=== PATIENT | male | born 1955 | race Caucasian/White ===

== ENCOUNTER 2021-06-10 13:35 | Inpatient (IN) | payer MEDICAID, MEDICARE, OTHER ==
[~2021-06-10] VITALS: Ht 185.4 cm; Wt 83.5 kg
[2021-06-10] MEDS ORDERED: SODIUM CHLORIDE 0.9% 1,000 ML IV ONE ×2 (14:00→18:30)
[2021-06-10] MEDS ORDERED: PIPERACILLIN-TAZOB 3.375GM 100 ML IV ONE (14:00)
[2021-06-10 14:21] LABS: Basophils # (auto) 0.1 10 ^3/uL (0-0.2); Eosinophils # (auto) 0.1 10 ^3/uL (0-0.8); Hemoglobin 13.6 g/dL (13.5-17.5); Lymphocytes # (auto) 0.9 10 ^3/uL (0.4-5.4); Monocytes # (auto) 0.9 10 ^3/uL (0-1.3); Red Cell Distribution Width 13.3 % (11.8-14.3)
[2021-06-10 14:22] LABS: Basophils % (auto) 0.3 % (0.0-2.0); Eosinophils % (auto) 0.3 % (0.0-7.0); Hematocrit 39.4 % (41.0-53.0); Lymphocytes % (auto) 4.5 % (10.0-50.0); Mean Corpuscular Hemoglobin 31.9 pg (28.0-32.0); Mean Corpuscular Hgb Conc. 34.6 g/dL (32.0-36.0); Mean Corpuscular Volume 92.3 fL (80.0-100.0); Monocytes % (auto) 4.5 % (0.0-12.0); Neutrophils # (auto) 17.6 10 ^3/uL (1.6-8.6); Neutrophils % (auto) 90.4 % (37.0-80.0); Red Blood Cells 4.27 10^6/uL (4.5-5.90); White Blood Cell 19.5 10^3/uL (4.4-10.8)
[2021-06-10 14:35] LABS: INR 1.16 (0.9-1.15); Partial Thromboplastin Time 33.3 sec (23.6-33.0)
[2021-06-10 14:40] LABS: Albumin 2.5 g/dL (3.4-5.0); Anion Gap 7 (5-15); BUN/Creatinine Ratio 13.4; Blood Urea Nitrogen 9 mg/dL (7-18); Calcium 8.7 mg/dL (8.5-10.1); Carbon Dioxide 28 mmol/L (21-32); Chloride 94 mmol/L (98-107); GFR African American 153 mL/min; GFR Non-African American 126 mL/min; Glucose 170 mg/dL (74-106); Potassium 3.2 mmol/L (3.5-5.1); Sodium 129 mmol/L (136-145)
[2021-06-10 14:47] LABS: Alanine Aminotransferase 37 U/L (16-61); Alkaline Phosphatase 153 U/L (45-117); Aspartate Aminotransferase 22 U/L (15-37); Total Protein 7.1 g/dL (6.4-8.2)
[2021-06-10] MEDS ORDERED: cloNIDine HCL 0.1 MG TAB PO ONE (15:00)
[2021-06-10] MEDS ORDERED: MORPHINE SULFATE INJECTION 2 MG/ML SYRG IV PRN ×3 (17:45→18:30)
[2021-06-10] MEDS ORDERED: NITROGLYCERIN 0.4 MG SL TAB SL PRN ×2 (17:45→18:30)
[2021-06-10] MEDS ORDERED: HYDROcodone-ACET 5/325MG TAB PO PRN (18:30)
[2021-06-10] MEDS ORDERED: ONDANSETRON HCL 4 MG/2 ML VIAL IV PRN (18:30)
[2021-06-10] MEDS ORDERED: BENAZEPRIL HCL 10 MG TAB PO ONE (18:30)
[2021-06-10] MEDS ORDERED: ALUM & MAG HYDROX-SIMETH LIQ(MAALOX) 30 ML PO PRN (18:30)
[2021-06-10] MEDS ORDERED: VANCOMYCIN PER PHARMACY 0 MG IV SCH (18:30)
[2021-06-10] MEDS ORDERED: LORazepam 0.5 MG TAB PO PRN (18:30)
[2021-06-10] MEDS ORDERED: DEXTROSE (50%) 50ML SYRG IV PRN (18:30)
[2021-06-10] MEDS ORDERED: NIFEdipine ER 30 MG TAB PO ONE (18:30)
[2021-06-10] MEDS ORDERED: SODIUM CHLORIDE 0.9% 1,000 ML IV SCH (18:30)
[2021-06-10] MEDS ORDERED: hydrALAZINE HCL 20 MG/ML VL IV PRN (18:30)
[2021-06-10] MEDS ORDERED: DOCUSATE SOD 100 MG CAP PO PRN (18:30)
[2021-06-10] MEDS ORDERED: ACETAMINOPHEN 325 MG TAB PO PRN (18:30)
[2021-06-10] MEDS ORDERED: PIPERACILLIN-TAZO 4.5GM 100 ML IV ONE (18:45)
[2021-06-10 19:14] LABS: Cholesterol 127 mg/dL (< 200); HDL Cholesterol 40 mg/dL (40-59); LDL Cholesterol 72 mg/dL (< 100); Triglycerides 101 mg/dL (< 150)
[2021-06-10] MEDS ORDERED: PENTOXIFYLLINE 400 MG ER TAB PO ONE (20:00)
[2021-06-10] MEDS: POTASSIUM CHL 20MEQ/100ML 100 ML IV SCH ×2 (21:29→22:17)
[2021-06-10] MEDS ORDERED: ATORVASTATIN 20 MG TAB PO SCH (22:00)
[2021-06-10] MEDS ORDERED: InsuLIN REG 1unit/0.01ml Soln (100units/ml) SC SCH (22:00)
[2021-06-10] MEDS: ACCU-CHEK COMFORT CURVE STRIP VI SCH (22:00)
[2021-06-11] MEDS: VANCOMYCIN 1GM/250ML 250 ML IV SCH ×4 (01:07→09:05)
[2021-06-11 01:35] VITALS: BP 143/64
[2021-06-11] MEDS: PIPERACILLIN-TAZOB 3.375GM 100 ML IV SCH ×2 (02:32→06:19)
[2021-06-11] MEDS ORDERED: PENTOXIFYLLINE 400 MG ER TAB PO SCH (04:00)
[2021-06-11 05:00] VITALS: BP 151/64
[2021-06-11] MEDS: ACCU-CHEK COMFORT CURVE STRIP VI SCH (06:19)
[2021-06-11] MEDS ORDERED: InsuLIN REG 1unit/0.01ml Soln (100units/ml) SC SCH (07:00)
[2021-06-11 07:58] LABS: Basophils # (auto) 0.1 10 ^3/uL (0-0.2); Basophils % (auto) 0.3 % (0.0-2.0); Eosinophils # (auto) 0.1 10 ^3/uL (0-0.8); Eosinophils % (auto) 0.5 % (0.0-7.0); Lymphocytes % (auto) 4.8 % (10.0-50.0); Mean Corpuscular Hemoglobin 32.5 pg (28.0-32.0); Mean Corpuscular Hgb Conc. 35.3 g/dL (32.0-36.0); Mean Corpuscular Volume 92.1 fL (80.0-100.0); Monocytes % (auto) 4.7 % (0.0-12.0); Neutrophils # (auto) 18.5 10 ^3/uL (1.6-8.6); Neutrophils % (auto) 89.7 % (37.0-80.0); Red Cell Distribution Width 13.5 % (11.8-14.3); White Blood Cell 20.6 10^3/uL (4.4-10.8)
[2021-06-11 08:00] VITALS: BP 156/74
[2021-06-11 08:11] LABS: Albumin 2.1 g/dL (3.4-5.0); Anion Gap 8 (5-15); Blood Urea Nitrogen 14 mg/dL (7-18); Calcium 7.9 mg/dL (8.5-10.1); Carbon Dioxide 24 mmol/L (21-32); Chloride 99 mmol/L (98-107); Glucose 153 mg/dL (74-106); Potassium 3.3 mmol/L (3.5-5.1); Sodium 131 mmol/L (136-145)
[2021-06-11 08:17] LABS: Alanine Aminotransferase 31 U/L (16-61); Alkaline Phosphatase 128 U/L (45-117); Aspartate Aminotransferase 22 U/L (15-37); BUN/Creatinine Ratio 20.6; GFR African American 150 mL/min; GFR Non-African American 124 mL/min; Phosphorus 3.1 mg/dL (2.5-4.90); Total Protein 6.2 g/dL (6.4-8.2)
[2021-06-11 09:00] VITALS: BP 156/74
[2021-06-11] MEDS ORDERED: NIFEdipine ER 30 MG TAB PO SCH (10:00)
[2021-06-11] MEDS ORDERED: ENOXAPARIN SOD 40 MG/0.4 ML SYRINGE SC SCH (10:00)
[2021-06-11] MEDS ORDERED: ASPirin 81 mg TAB PO SCH (10:00)
[2021-06-11] MEDS ORDERED: BENAZEPRIL HCL 10 MG TAB PO SCH (10:00)
== END 2021-06-11 09:21 | disposition left against medical advice (07) | DRG 638 ==
LOC: ER 13:35 → EDBD 13:35 → EDUNIT# 13:35 → TELE 18:25 → TELE-WESTW 23:34
PROVIDERS: ADMIT Hospitalist; ATTEND Hospitalist
DX: E11.69 Type 2 diabetes mellitus with other specified complication (principal); E44.1 Mild protein-calorie malnutrition; L03.115 Cellulitis of right lower limb; M86.171 Other acute osteomyelitis, right ankle and foot; E11.621 Type 2 diabetes mellitus with foot ulcer; M72.2 Plantar fascial fibromatosis; I16.0 Hypertensive urgency; L97.519 Non-pressure chronic ulcer of other part of right foot with unspecified severity; J44.9 Chronic obstructive pulmonary disease, unspecified; E11.40 Type 2 diabetes mellitus with diabetic neuropathy, unspecified; E78.5 Hyperlipidemia, unspecified; D63.8 Anemia in other chronic diseases classified elsewhere; E11.51 Type 2 diabetes mellitus with diabetic peripheral angiopathy without gangrene; E66.01 Morbid (severe) obesity due to excess calories; Z20.822 Contact with and (suspected) exposure to COVID-19; I11.0 Hypertensive heart disease with heart failure; I50.9 Heart failure, unspecified; Z53.29 Procedure and treatment not carried out because of patient's decision for other reasons; M10.9 Gout, unspecified; Z89.432 Acquired absence of left foot; Z83.3 Family history of diabetes mellitus
CPT/HCPCS: 36415; 71045; 73700; 80053; 80061; 82962; 83036; 83605; 83735; 83880; 83970; 84100; 84443; 84484; 85025; 85610; 85730; 87040; 87426; 93970; 96361; 96365; G0378; J1815; J2543; J3480

== ENCOUNTER → 2021-06-15 | Emergency (ER) | payer OTHER ==
[~2021-06-15] VITALS: Ht 182.9 cm; Wt 87.1 kg
[~2021-06-15] MED LIST: SODIUM CHLORIDE 0.9% 1,000 ML IV ONE; SODIUM CHLORIDE 0.9% 500 ML IV ONE; VANCOMYCIN 1GM/250ML 250 ML IV ONE
[2021-06-15 12:03] VITALS: BP 144/58
[2021-06-15 15:14] LABS: INR 1.32 (0.9-1.15); Partial Thromboplastin Time 33.6 sec (23.6-33.0)
[2021-06-15 15:29] LABS: Albumin 2.2 g/dL (3.4-5.0); Calcium 8.8 mg/dL (8.5-10.1); Potassium 3.4 mmol/L (3.5-5.1)
[2021-06-15 15:33] LABS: BUN/Creatinine Ratio 20.8; Bilirubin, Total 1.2 mg/dL (0.2-1.0); Total Protein 7.5 g/dL (6.4-8.2)
[2021-06-15 15:36] LABS: Hemoglobin 12.3 g/dL (13.5-17.5); Mean Corpuscular Volume 91.5 fL (80.0-100.0)
[2021-06-15 15:37] LABS: Hematocrit 35.4 % (41.0-53.0); Mean Corpuscular Hemoglobin 31.9 pg (28.0-32.0); Mean Corpuscular Hgb Conc. 34.9 g/dL (32.0-36.0); Red Blood Cells 3.86 10^6/uL (4.5-5.90); Red Cell Distribution Width 13.4 % (11.8-14.3); White Blood Cell 26.3 10^3/uL (4.4-10.8)
[2021-06-15 15:44] LABS: Band Neutrophils % (manual) 0; Basophils % (manual) 0 (0.0-2.0); Blast Cells 0; Eosinophils % (manual) 0 (0-7); Metamyelocytes % 0; Myelocytes % 0; Promyelocytes % 0; Reactive Lymphocytes 0
[2021-06-15 16:16] LABS: Lymphocytes % (manual) 4 (10.0-50.0); Monocytes % (manual) 2 (0-12)
== END | disposition home or self-care (01) ==
LOC: ER 11:43
DX: L03.115 Cellulitis of right lower limb (principal); E11.621 Type 2 diabetes mellitus with foot ulcer; M86.9 Osteomyelitis, unspecified; E11.65 Type 2 diabetes mellitus with hyperglycemia; E87.6 Hypokalemia; E43 Unspecified severe protein-calorie malnutrition; I11.0 Hypertensive heart disease with heart failure; I50.9 Heart failure, unspecified; J44.9 Chronic obstructive pulmonary disease, unspecified; M10.9 Gout, unspecified; E78.5 Hyperlipidemia, unspecified; Z68.26 Body mass index [BMI] 26.0-26.9, adult
CPT/HCPCS: 36415; 71046; 73700; 80053; 83735; 84484; 85007; 85027; 85610; 85730; 93005

== ENCOUNTER 2021-06-16 10:38 | Inpatient (IN) | payer OTHER ==
[~2021-06-16] VITALS: Ht 180.3 cm; Wt 100.8 kg
[2021-06-16] MEDS ORDERED: CLINDAMYCIN 600MG IV 50 ML IV ONE (11:15)
[2021-06-16 11:37] LABS: Hematocrit 36.8 % (41.0-53.0); Hemoglobin 12.6 g/dL (13.5-17.5); Mean Corpuscular Hemoglobin 31.8 pg (28.0-32.0); Mean Corpuscular Hgb Conc. 34.2 g/dL (32.0-36.0); Red Blood Cells 3.95 10^6/uL (4.5-5.90); Red Cell Distribution Width 13.4 % (11.8-14.3)
[2021-06-16 11:41] LABS: Albumin 2.2 g/dL (3.4-5.0); Calcium 8.8 mg/dL (8.5-10.1); Potassium 3.1 mmol/L (3.5-5.1)
[2021-06-16 11:49] LABS: Bilirubin, Total 1.2 mg/dL (0.2-1.0); Total Protein 7.7 g/dL (6.4-8.2)
[2021-06-16 11:51] LABS: Basophils % (manual) 0 (0.0-2.0); Blast Cells 0; Eosinophils % (manual) 0 (0-7); Metamyelocytes % 0; Myelocytes % 0; Promyelocytes % 0; Reactive Lymphocytes 0; White Blood Cell 30.5 10^3/uL (4.4-10.8)
[2021-06-16] MEDS ORDERED: SODIUM CHLORIDE 0.9% 1,000 ML IV SCH (12:45)
[2021-06-16] MEDS ORDERED: MORPHINE SULFATE INJECTION 2 MG/ML SYRG IV PRN (12:45)
[2021-06-16] MEDS ORDERED: ONDANSETRON HCL 4 MG/2 ML VIAL IV PRN (12:45)
[2021-06-16] MEDS ORDERED: ACETAMINOPHEN 325 MG TAB PO PRN (12:45)
[2021-06-16] MEDS ORDERED: NITROGLYCERIN 0.4 MG SL TAB SL PRN (12:45)
[2021-06-16] MEDS ORDERED: POTASSIUM EFFERVESENT TAB 25 MEQ PO ONE (13:00)
[2021-06-16] MEDS ORDERED: POTASSIUM CHL 20MEQ/100ML 100 ML IV SCH (13:00)
[2021-06-16] MEDS: SODIUM CHLORIDE 0.9% 1,000 ML IV SCH ×2 (13:41→22:05)
[2021-06-16] MEDS ORDERED: CLINDAMYCIN 600MG IV 50 ML IV SCH ×2 (14:00→22:00)
[2021-06-16 14:49] LABS: Band Neutrophils % (manual) 1; Lymphocytes % (manual) 5 (10.0-50.0); Monocytes % (manual) 7 (0-12)
[2021-06-16] MEDS ORDERED: VANCOMYCIN PER PHARMACY 0 MG IV STA (17:46)
[2021-06-16] MEDS ORDERED: VANCOMYCIN PER PHARMACY 0 MG IV SCH (18:30)
[2021-06-16] MEDS ORDERED: VANCOMYCIN 1GM/250ML 250 ML IV ONE (18:30)
[2021-06-16] MEDS: AMPICILLIN & SULBACTAM SODIUM 3 GM in SODIUM CHL 0.9% 100 ML IV SCH (19:07)
[2021-06-17] MEDS: AMPICILLIN & SULBACTAM SODIUM 3 GM in SODIUM CHL 0.9% 100 ML IV SCH ×4 (00:05→13:39)
[2021-06-17 00:24] VITALS: BP 131/61
[2021-06-17] MEDS: POTASSIUM CHL 20MEQ/100ML 100 ML IV SCH ×2 (01:16→03:38)
[2021-06-17] MEDS ORDERED: INFLUENZA QUAD 2021-2022 0.5 ML SYRG IM ONE (02:15)
[2021-06-17] MEDS ORDERED: PNEUMOCOCCAL VACC POLYS 25 MCG/0.5 ML VIAL IM ONE (02:15)
[2021-06-17 05:00] VITALS: BP 142/62
[2021-06-17 05:17] LABS: Basophils # (auto) 0.1 10 ^3/uL (0-0.2); Eosinophils # (auto) 0.1 10 ^3/uL (0-0.8); Lymphocytes # (auto) 0.8 10 ^3/uL (0.4-5.4); Monocytes # (auto) 1.2 10 ^3/uL (0-1.3); Neutrophils # (auto) 19.1 10 ^3/uL (1.6-8.6); White Blood Cell 21.3 10^3/uL (4.4-10.8)
[2021-06-17 05:19] LABS: Basophils % (auto) 0.6 % (0.0-2.0); Eosinophils % (auto) 0.4 % (0.0-7.0); Hematocrit 35.1 % (41.0-53.0); Lymphocytes % (auto) 3.9 % (10.0-50.0); Mean Corpuscular Hemoglobin 31.4 pg (28.0-32.0); Mean Corpuscular Hgb Conc. 34.1 g/dL (32.0-36.0); Mean Corpuscular Volume 91.9 fL (80.0-100.0); Monocytes % (auto) 5.8 % (0.0-12.0); Neutrophils % (auto) 89.3 % (37.0-80.0); Nucleated Red Blood Cells % 0.1 %; Red Blood Cells 3.82 10^6/uL (4.5-5.90); Red Cell Distribution Width 13.3 % (11.8-14.3)
[2021-06-17] MEDS: HYDROcodone-ACET 5/325MG TAB PO PRN ×2 (05:19→16:04)
[2021-06-17] MEDS: SODIUM CHLORIDE 0.9% 1,000 ML IV SCH ×2 (05:29→17:35)
[2021-06-17 05:41] LABS: Albumin 1.8 g/dL (3.4-5.0); Calcium 8.2 mg/dL (8.5-10.1); Potassium 3.6 mmol/L (3.5-5.1)
[2021-06-17 05:46] LABS: BUN/Creatinine Ratio 37.3; Total Protein 6.7 g/dL (6.4-8.2)
[2021-06-17] MEDS: VANCOMYCIN 1GM/250ML 250 ML IV SCH ×2 (06:00→17:35)
[2021-06-17 09:00] VITALS: BP 128/62
[2021-06-17] MEDS: ENOXAPARIN SOD 40 MG/0.4 ML SYRINGE SC SCH (10:00)
[2021-06-17 10:19] LABS: INR 1.41 (0.9-1.15); Partial Thromboplastin Time 35.1 sec (23.6-33.0)
[2021-06-17] MEDS ORDERED: ceFAZolin 1GM VL ONE (11:51)
[2021-06-17] MEDS ORDERED: fentaNYL CITRATE 100 MCG/2 ML VL ONE (12:09)
[2021-06-17] MEDS ORDERED: MEPERIDINE HCL (25 MG/ML) 1ML VIAL ONE (12:09)
[2021-06-17] MEDS ORDERED: PROPOFOL 10 MG/ML 20 ML IV ONE (12:10)
[2021-06-17] MEDS ORDERED: DexAMETHasone SOD PHOS 10MG/1ML VIAL INJ ONE (12:10)
[2021-06-17] MEDS ORDERED: MIDAZOLAM HCL 2MG/2ML 2ml VIAL (1mg/ml) ONE (12:10)
[2021-06-17] MEDS ORDERED: SILVER SULFADIAZINE 1 % TOPICAL CREAM 50GM TOP ONE (12:34)
[2021-06-17 13:00] VITALS: BP 147/59
[2021-06-17] MEDS ORDERED: ePHEDrine SULFATE 50 MG/ML AMP IV PRN (13:15)
[2021-06-17] MEDS ORDERED: LABETALOL HCL 5 MG/ML 4ML SYRINGE IV PRN (13:15)
[2021-06-17] MEDS ORDERED: ONDANSETRON HCL 4 MG/2 ML VIAL IV PRN (13:15)
[2021-06-17] MEDS ORDERED: MIDAZOLAM HCL 2MG/2ML 2ml VIAL (1mg/ml) IV PRN (13:15)
[2021-06-17] MEDS ORDERED: MORPHINE SULFATE 4 MG/ML SYR/VIAL IV PRN (13:15)
[2021-06-17] MEDS ORDERED: HYDROmorphone HCL 2 MG/ML VL IV PRN (13:15)
[2021-06-17 17:00] VITALS: BP 158/69
[2021-06-17 22:00] VITALS: BP 148/67
[2021-06-18] MEDS: AMPICILLIN & SULBACTAM SODIUM 3 GM in SODIUM CHL 0.9% 100 ML IV SCH ×5 (00:22→23:40)
[2021-06-18] MEDS: HYDROcodone-ACET 5/325MG TAB PO PRN ×4 (00:24→23:40)
[2021-06-18] MEDS: SODIUM CHLORIDE 0.9% 1,000 ML IV SCH ×3 (01:23→15:00)
[2021-06-18] MEDS: VANCOMYCIN 1GM/250ML 250 ML IV SCH ×3 (01:53→19:55)
[2021-06-18 05:00] VITALS: BP 152/73
[2021-06-18 09:00] VITALS: BP 135/76
[2021-06-18] MEDS: ENOXAPARIN SOD 40 MG/0.4 ML SYRINGE SC SCH (09:24)
[2021-06-18] MEDS: MORPHINE SULFATE 4 MG/ML SYR/VIAL IV PRN ×2 (09:28→18:40)
[2021-06-18 13:00] VITALS: BP 135/63
[2021-06-18] MEDS ORDERED: LIDOCAINE 1% (LOCAL ANESTH.) PF 5ml SDV ID ONE (16:00)
[2021-06-18 17:00] VITALS: BP 142/71
[2021-06-18] MEDS: SODIUM CHLOR 0.9% PF (SALINE LOCK) 10ML VIAL/SYR IV SCH (21:56)
[2021-06-18 22:00] VITALS: BP 148/68
[2021-06-19] MEDS: SODIUM CHLORIDE 0.9% 1,000 ML IV SCH ×3 (02:52→15:51)
[2021-06-19] MEDS: VANCOMYCIN 1GM/250ML 250 ML IV SCH ×2 (03:56→12:34)
[2021-06-19 05:00] VITALS: BP 124/86
[2021-06-19] MEDS: AMPICILLIN & SULBACTAM SODIUM 3 GM in SODIUM CHL 0.9% 100 ML IV SCH ×4 (05:35→22:46)
[2021-06-19] MEDS: HYDROcodone-ACET 5/325MG TAB PO PRN ×3 (06:40→22:47)
[2021-06-19 09:00] VITALS: BP 133/65
[2021-06-19] MEDS: ENOXAPARIN SOD 40 MG/0.4 ML SYRINGE SC SCH (10:08)
[2021-06-19] MEDS: SODIUM CHLOR 0.9% PF (SALINE LOCK) 10ML VIAL/SYR IV SCH ×2 (10:09→22:06)
[2021-06-19 12:35] LABS: Eosinophils # (auto) 0.1 10 ^3/uL (0-0.8); Mean Corpuscular Hgb Conc. 33.9 g/dL (32.0-36.0)
[2021-06-19 12:38] LABS: Basophils # (auto) 0.2 10 ^3/uL (0-0.2); Basophils % (auto) 0.9 % (0.0-2.0); Eosinophils % (auto) 0.4 % (0.0-7.0); Hematocrit 33.6 % (41.0-53.0); Hemoglobin 11.4 g/dL (13.5-17.5); Lymphocytes # (auto) 1.2 10 ^3/uL (0.4-5.4); Lymphocytes % (auto) 5.3 % (10.0-50.0); Mean Corpuscular Hemoglobin 31.4 pg (28.0-32.0); Mean Corpuscular Volume 92.8 fL (80.0-100.0); Monocytes # (auto) 1.2 10 ^3/uL (0-1.3); Monocytes % (auto) 5.7 % (0.0-12.0); Neutrophils # (auto) 19.1 10 ^3/uL (1.6-8.6); Neutrophils % (auto) 87.7 % (37.0-80.0); Red Blood Cells 3.62 10^6/uL (4.5-5.90); Red Cell Distribution Width 13.4 % (11.8-14.3); White Blood Cell 21.8 10^3/uL (4.4-10.8)
[2021-06-19 12:50] LABS: Calcium 7.7 mg/dL (8.5-10.1); Magnesium 1.5 mg/dL (1.6-2.6); Potassium 3.4 mmol/L (3.5-5.1)
[2021-06-19 13:12] VITALS: BP 144/77
[2021-06-19 16:35] VITALS: BP 135/74
[2021-06-19] MEDS: MORPHINE SULFATE 4 MG/ML SYR/VIAL IV PRN (19:47)
[2021-06-19 22:00] VITALS: BP 162/74
[2021-06-19] MEDS: hydrALAZINE HCL 20 MG/ML VL IV PRN (22:46)
[2021-06-20] MEDS: SODIUM CHLORIDE 0.9% 1,000 ML IV SCH ×3 (00:05→18:13)
[2021-06-20 05:00] VITALS: BP 161/72
[2021-06-20] MEDS: AMPICILLIN & SULBACTAM SODIUM 3 GM in SODIUM CHL 0.9% 100 ML IV SCH (05:58)
[2021-06-20] MEDS: HYDROcodone-ACET 5/325MG TAB PO PRN ×3 (05:59→20:19)
[2021-06-20] MEDS: hydrALAZINE HCL 20 MG/ML VL IV PRN (05:59)
[2021-06-20 09:00] VITALS: BP 141/66
[2021-06-20 09:34] LABS: Basophils # (auto) 0.1 10 ^3/uL (0-0.2); Mean Corpuscular Hemoglobin 31.6 pg (28.0-32.0)
[2021-06-20 09:40] LABS: Basophils % (auto) 0.5 % (0.0-2.0); Eosinophils # (auto) 0 10 ^3/uL (0-0.8); Eosinophils % (auto) 0.2 % (0.0-7.0); Hematocrit 33.2 % (41.0-53.0); Hemoglobin 11.3 g/dL (13.5-17.5); Lymphocytes % (auto) 4.8 % (10.0-50.0); Mean Corpuscular Hgb Conc. 34.2 g/dL (32.0-36.0); Mean Corpuscular Volume 92.5 fL (80.0-100.0); Monocytes # (auto) 1.1 10 ^3/uL (0-1.3); Monocytes % (auto) 5.1 % (0.0-12.0); Neutrophils # (auto) 18.9 10 ^3/uL (1.6-8.6); Neutrophils % (auto) 89.4 % (37.0-80.0); Red Blood Cells 3.59 10^6/uL (4.5-5.90); Red Cell Distribution Width 13.5 % (11.8-14.3); White Blood Cell 21.1 10^3/uL (4.4-10.8)
[2021-06-20 09:41] LABS: BUN/Creatinine Ratio 11.5; Calcium 7.7 mg/dL (8.5-10.1); Magnesium 1.6 mg/dL (1.6-2.6)
[2021-06-20] MEDS: ENOXAPARIN SOD 40 MG/0.4 ML SYRINGE SC SCH (09:56)
[2021-06-20] MEDS: SODIUM CHLOR 0.9% PF (SALINE LOCK) 10ML VIAL/SYR IV SCH ×2 (09:57→20:19)
[2021-06-20] MEDS ORDERED: cefTRIAXone 1GM/50ML D5W 50 ML IV SCH (12:00)
[2021-06-20] MEDS ORDERED: POTASSIUM EFFERVESENT TAB 25 MEQ PO ONE (12:00)
[2021-06-20] MEDS ORDERED: MAGNESIUM OXIDE 400 MG TAB PO ONE (12:00)
[2021-06-20] MEDS: VANCOMYCIN 1GM/250ML 250 ML IV SCH ×3 (12:28→23:56)
[2021-06-20] MEDS: CEFTRIAXONE SODIUM 2 GM in D5W 5% 50 ML IV SCH (15:46)
[2021-06-20 17:00] VITALS: BP 137/66
[2021-06-20] MEDS ORDERED: LACTULOSE 20Gm/30ML SOLN PO PRN (20:15)
[2021-06-20] MEDS ORDERED: DEXTROSE (50%) 50ML SYRG IV PRN (20:15)
[2021-06-20 22:00] VITALS: BP 155/68
[2021-06-20] MEDS ORDERED: InsuLIN REG 1unit/0.01ml Soln (100units/ml) SC SCH (22:00)
[2021-06-20] MEDS ORDERED: ACCU-CHEK COMFORT CURVE STRIP VI SCH (22:00)
[2021-06-21] MEDS: SODIUM CHLORIDE 0.9% 1,000 ML IV SCH ×3 (01:05→17:45)
[2021-06-21] MEDS: HYDROcodone-ACET 5/325MG TAB PO PRN ×2 (04:48→12:14)
[2021-06-21] MEDS: SODIUM CHLOR 0.9% PF (SALINE LOCK) 10ML VIAL/SYR IV SCH ×2 (10:56→21:03)
[2021-06-21] MEDS: CEFTRIAXONE SODIUM 2 GM in D5W 5% 50 ML IV SCH (10:56)
[2021-06-21] MEDS: ENOXAPARIN SOD 40 MG/0.4 ML SYRINGE SC SCH (10:56)
[2021-06-21] MEDS: VANCOMYCIN 1GM/250ML 250 ML IV SCH ×2 (12:13→23:34)
[2021-06-21 17:00] VITALS: BP 154/73
[2021-06-21] MEDS: MORPHINE SULFATE 4 MG/ML SYR/VIAL IV PRN (21:42)
[2021-06-21 22:00] VITALS: BP 144/71
[2021-06-22] MEDS: HYDROcodone-ACET 5/325MG TAB PO PRN ×2 (01:20→19:43)
[2021-06-22] MEDS: SODIUM CHLORIDE 0.9% 1,000 ML IV SCH ×4 (01:21→23:10)
[2021-06-22 04:30] VITALS: BP 156/71
[2021-06-22] MEDS: hydrALAZINE HCL 20 MG/ML VL IV PRN ×2 (04:40→18:57)
[2021-06-22 09:00] VITALS: BP 145/69
[2021-06-22] MEDS: CEFTRIAXONE SODIUM 2 GM in D5W 5% 50 ML IV SCH (11:25)
[2021-06-22] MEDS: SODIUM CHLOR 0.9% PF (SALINE LOCK) 10ML VIAL/SYR IV SCH ×2 (11:25→21:07)
[2021-06-22] MEDS: ENOXAPARIN SOD 40 MG/0.4 ML SYRINGE SC SCH (11:26)
[2021-06-22] MEDS: MORPHINE SULFATE 4 MG/ML SYR/VIAL IV PRN ×2 (11:28→23:47)
[2021-06-22 13:00] VITALS: BP 153/71
[2021-06-22 13:16] LABS: Calcium 7.8 mg/dL (8.5-10.1); Potassium 3.2 mmol/L (3.5-5.1)
[2021-06-22] MEDS: VANCOMYCIN 1GM/250ML 250 ML IV SCH (13:26)
[2021-06-22 14:35] LABS: Basophils # (auto) 0.2 10 ^3/uL (0-0.2); Basophils % (auto) 0.7 % (0.0-2.0); Eosinophils # (auto) 0.1 10 ^3/uL (0-0.8); Eosinophils % (auto) 0.3 % (0.0-7.0); Hematocrit 32.5 % (41.0-53.0); Hemoglobin 10.8 g/dL (13.5-17.5); Lymphocytes # (auto) 1.4 10 ^3/uL (0.4-5.4); Lymphocytes % (auto) 6.2 % (10.0-50.0); Mean Corpuscular Hemoglobin 30.7 pg (28.0-32.0); Mean Corpuscular Hgb Conc. 33.2 g/dL (32.0-36.0); Mean Corpuscular Volume 92.5 fL (80.0-100.0); Monocytes # (auto) 1.2 10 ^3/uL (0-1.3); Monocytes % (auto) 5.4 % (0.0-12.0); Neutrophils # (auto) 19.8 10 ^3/uL (1.6-8.6); Neutrophils % (auto) 87.4 % (37.0-80.0); Red Blood Cells 3.52 10^6/uL (4.5-5.90); Red Cell Distribution Width 13.9 % (11.8-14.3); White Blood Cell 22.6 10^3/uL (4.4-10.8)
[2021-06-22] MEDS ORDERED: VANCOMYCIN 1GM/250ML 250 ML IV SCH (17:00)
[2021-06-22 22:00] VITALS: BP 130/58
[2021-06-23] MEDS ORDERED: VANCOMYCIN 1GM/250ML 250 ML IV SCH
[2021-06-23] MEDS: HYDROcodone-ACET 5/325MG TAB PO PRN ×2 (03:22→21:33)
[2021-06-23 05:00] VITALS: BP 135/70
[2021-06-23 09:00] VITALS: BP 156/87
[2021-06-23] MEDS ORDERED: POTASSIUM EFFERVESENT TAB 25 MEQ PO ONE (09:00)
[2021-06-23 09:26] LABS: Hematocrit 31.4 % (41.0-53.0); Hemoglobin 10.3 g/dL (13.5-17.5); Mean Corpuscular Hemoglobin 30.2 pg (28.0-32.0); Mean Corpuscular Hgb Conc. 32.8 g/dL (32.0-36.0); Mean Corpuscular Volume 92.3 fL (80.0-100.0); Red Cell Distribution Width 13.6 % (11.8-14.3); White Blood Cell 19.7 10^3/uL (4.4-10.8)
[2021-06-23 09:42] LABS: Basophils % (manual) 0 (0.0-2.0); Blast Cells 0; Eosinophils % (manual) 0 (0-7); Metamyelocytes % 0; Myelocytes % 0; Promyelocytes % 0; Reactive Lymphocytes 0
[2021-06-23] MEDS: cefTRIAXone 1GM/50ML D5W 50 ML IV SCH (09:50)
[2021-06-23] MEDS: ENOXAPARIN SOD 40 MG/0.4 ML SYRINGE SC SCH (09:51)
[2021-06-23] MEDS: SODIUM CHLOR 0.9% PF (SALINE LOCK) 10ML VIAL/SYR IV SCH ×2 (09:51→21:44)
[2021-06-23] MEDS ORDERED: VANCOMYCIN 1,500 MG in D5W 5% 250 ML IV SCH (10:00)
[2021-06-23] MEDS ORDERED: VANCOMYCIN PER PHARMACY 0 MG IV SCH (10:00)
[2021-06-23 10:13] LABS: Band Neutrophils % (manual) 2; Lymphocytes % (manual) 8 (10.0-50.0); Monocytes % (manual) 3 (0-12)
[2021-06-23] MEDS: SODIUM CHLORIDE 0.9% 1,000 ML IV SCH ×2 (11:25→19:45)
[2021-06-23] MEDS: VANCOMYCIN 1GM/250ML 250 ML IV SCH ×2 (12:16→22:15)
[2021-06-23] MEDS: hydrALAZINE HCL 20 MG/ML VL IV PRN (12:17)
[2021-06-23] MEDS: MORPHINE SULFATE 4 MG/ML SYR/VIAL IV PRN ×2 (12:48→18:47)
[2021-06-23 13:00] VITALS: BP 141/62
[2021-06-23 17:00] VITALS: BP 149/73
[2021-06-23 22:00] VITALS: BP 144/71
[2021-06-24] MEDS: SODIUM CHLORIDE 0.9% 1,000 ML IV SCH ×3 (00:30→20:45)
[2021-06-24] MEDS: MORPHINE SULFATE 4 MG/ML SYR/VIAL IV PRN ×2 (02:43→09:34)
[2021-06-24 05:00] VITALS: BP 139/69
[2021-06-24] MEDS: HYDROcodone-ACET 5/325MG TAB PO PRN (05:49)
[2021-06-24 09:00] VITALS: BP 146/64
[2021-06-24] MEDS: VANCOMYCIN 1GM/250ML 250 ML IV SCH ×2 (09:03→18:16)
[2021-06-24] MEDS: ENOXAPARIN SOD 40 MG/0.4 ML SYRINGE SC SCH (09:05)
[2021-06-24] MEDS: SODIUM CHLOR 0.9% PF (SALINE LOCK) 10ML VIAL/SYR IV SCH ×2 (09:06→22:13)
[2021-06-24] MEDS: cefTRIAXone 1GM/50ML D5W 50 ML IV SCH (10:38)
[2021-06-24 11:49] LABS: Calcium 7.5 mg/dL (8.5-10.1); Potassium 3.3 mmol/L (3.5-5.1)
[2021-06-24 13:00] VITALS: BP 153/71
[2021-06-24] MEDS ORDERED: POTASSIUM EFFERVESENT TAB 25 MEQ GT ONE (13:00)
[2021-06-24] MEDS ORDERED: POTASSIUM EFFERVESENT TAB 25 MEQ PO ONE (13:30)
[2021-06-24 16:35] VITALS: BP 144/69
[2021-06-24 22:00] VITALS: BP 148/69
[2021-06-25] MEDS: VANCOMYCIN 1GM/250ML 250 ML IV SCH (04:00)
[2021-06-25 05:00] VITALS: BP 152/72
[2021-06-25] MEDS: SODIUM CHLORIDE 0.9% 1,000 ML IV SCH (05:01)
[2021-06-25] MEDS: MORPHINE SULFATE 4 MG/ML SYR/VIAL IV PRN (05:02)
[2021-06-25 08:46] VITALS: BP 153/73
[2021-06-25 08:59] VITALS: BP 156/87
[2021-06-25] MEDS: SODIUM CHLOR 0.9% PF (SALINE LOCK) 10ML VIAL/SYR IV SCH (10:00)
[2021-06-25] MEDS: cefTRIAXone 1GM/50ML D5W 50 ML IV SCH (10:05)
[2021-06-25] MEDS: ENOXAPARIN SOD 40 MG/0.4 ML SYRINGE SC SCH (10:11)
== END 2021-06-25 11:00 | disposition left against medical advice (07) | DRG 853 ==
LOC: ER 10:38 → TELE 12:38 → TELE-CENTR 22:24
PROVIDERS: ADMIT Internal Medicine; ATTEND Internal Medicine
PROC: 0J9Q0ZZ Drainage of Right Foot Subcutaneous Tissue and Fascia, Open Approach (ICD-10-PCS; 2021-06-17)
PROC: 0QBN0ZZ Excision of Right Metatarsal, Open Approach (ICD-10-PCS; principal; 2021-06-17 12:10)
PROC: 0JBQ0ZZ Excision of Right Foot Subcutaneous Tissue and Fascia, Open Approach (ICD-10-PCS; 2021-06-17 12:10)
PROC: 02HV33Z Insertion of Infusion Device into Superior Vena Cava, Percutaneous Approach (ICD-10-PCS; 2021-06-18)
PROC: B548ZZA Ultrasonography of Superior Vena Cava, Guidance (ICD-10-PCS; 2021-06-18)
PROC: 3E02340 Introduction of Influenza Vaccine into Muscle, Percutaneous Approach (ICD-10-PCS; 2021-06-23)
DX: A41.9 Sepsis, unspecified organism (principal); A48.0 Gas gangrene; I21.A1 Myocardial infarction type 2; L03.115 Cellulitis of right lower limb; M86.171 Other acute osteomyelitis, right ankle and foot; E87.1 Hypo-osmolality and hyponatremia; E87.6 Hypokalemia; L97.519 Non-pressure chronic ulcer of other part of right foot with unspecified severity; E83.42 Hypomagnesemia; E78.5 Hyperlipidemia, unspecified; I11.0 Hypertensive heart disease with heart failure; J44.9 Chronic obstructive pulmonary disease, unspecified; I50.9 Heart failure, unspecified; D72.829 Elevated white blood cell count, unspecified; Z20.822 Contact with and (suspected) exposure to COVID-19; Z53.21 Procedure and treatment not carried out due to patient leaving prior to being seen by health care provider; M10.9 Gout, unspecified; R74.01 Elevation of levels of liver transaminase levels; R79.89 Other specified abnormal findings of blood chemistry; Z89.422 Acquired absence of other left toe(s); Z72.0 Tobacco use; Z23 Encounter for immunization; B96.20 Unspecified Escherichia coli [E. coli] as the cause of diseases classified elsewhere; B95.2 Enterococcus as the cause of diseases classified elsewhere
CPT/HCPCS: 36415; 71045; 80048; 80053; 80202; 82565; 83605; 83735; 84484; 85007; 85025; 85027; 85610; 85730; 87040; 87070; 87075; 87076; 87077; 87081; 87186; 87205; 87426; 93306; 96365; 96366; 96368; G0378; J0690; J0696; J1100; J2250; J2704; J3480; J3490; J7060

== ENCOUNTER 2022-04-06 19:38 | Emergency (ER) | payer OTHER ==
[~2022-04-06] VITALS: Ht 182.9 cm; Wt 77.2 kg
[2022-04-06] MEDS ORDERED: SODIUM CHLORIDE 0.9% 1,000 ML IV ONE (20:15)
[2022-04-06 22:25] LABS: Basophils # (auto) 0 10 ^3/uL (0-0.2); Basophils % (auto) 0.1 % (0.0-2.0); Eosinophils # (auto) 0 10 ^3/uL (0-0.8); Eosinophils % (auto) 0.1 % (0.0-7.0); Hematocrit 27.8 % (41.0-53.0); Hemoglobin 8.9 g/dL (13.5-17.5); Lymphocytes # (auto) 0.7 10 ^3/uL (0.4-5.4); Lymphocytes % (auto) 4.6 % (10.0-50.0); Mean Corpuscular Hemoglobin 28.1 pg (28.0-32.0); Mean Corpuscular Volume 87.6 fL (80.0-100.0); Monocytes # (auto) 1.1 10 ^3/uL (0-1.3); Monocytes % (auto) 6.8 % (0.0-12.0); Neutrophils # (auto) 13.8 10 ^3/uL (1.6-8.6); Neutrophils % (auto) 88.4 % (37.0-80.0); Red Blood Cells 3.17 10^6/uL (4.5-5.90); Red Cell Distribution Width 15.9 % (11.8-14.3); White Blood Cell 15.6 10^3/uL (4.4-10.8)
[2022-04-06 22:39] LABS: Anion Gap 9 (5-15); Calcium 8.3 mg/dL (8.5-10.1); Carbon Dioxide 23 mmol/L (21-32); Chloride 94 mmol/L (98-107); Potassium 3.6 mmol/L (3.5-5.1); Sodium 126 mmol/L (136-145)
[2022-04-06 22:43] LABS: Alanine Aminotransferase 70 U/L (16-61); Aspartate Aminotransferase 172 U/L (15-37); BUN/Creatinine Ratio 46.4; Blood Urea Nitrogen 32 mg/dL (7-18); GFR African American 147 mL/min; GFR Non-African American 122 mL/min; Glucose 152 mg/dL (74-106)
[2022-04-06 22:45] LABS: Alkaline Phosphatase 136 U/L (45-117); Bilirubin, Total 0.9 mg/dL (0.2-1.0); Total Protein 5.9 g/dL (6.4-8.2)
[2022-04-06] MEDS ORDERED: MORPHINE SULFATE 4 MG/ML SYR/VIAL IV ONE (22:45)
[2022-04-06] MEDS ORDERED: CEFEPIME 1GM/ 50ML 50 ML IV ONE (23:30)
[2022-04-06] MEDS ORDERED: VANCOMYCIN 1GM/250ML 250 ML IV ONE (23:30)
[2022-04-06 23:35] LABS: CRP High Sensitivity > 19.0 mg/dL (< 0.3)
[2022-04-07 06:42] VITALS: BP 104/52
== END 2022-04-07 07:11 | disposition home or self-care (01) ==
LOC: EDUNIT# 19:38 → ER 19:38
DX: M86.8X7 Other osteomyelitis, ankle and foot (principal); E11.621 Type 2 diabetes mellitus with foot ulcer; Z20.822 Contact with and (suspected) exposure to COVID-19
CPT/HCPCS: 36415; 73630; 80053; 85025; 85652; 86141; 87426; 93005; 96361; 96365; 96368; 96375; 99285; J0692; J2270; J3370; J7030